=== PATIENT | female | born 1990 | race Caucasian/White ===

== ENCOUNTER 2017-03-26 02:20 | Emergency (ER) | payer MEDICAID, OTHER ==
--- NOTE | 2017-03-26 03:54 | ER Document Report ---
ED General - General Mode of Arrival: Ambulatory Information source: Patient <AUSTINAPOLINARCANELOANTHONY - Last Filed: 03/26/17 05:37> <MADDIEKAMERONVALERIA - Last Filed: 03/26/17 06:30> - General Chief Complaint: Chest Pain Stated Complaint: ABDOMINAL PAIN Time Seen by Provider: 03/26/17 03:40 Notes: Patient is a 26 year old female presenting to the emergency department for episodes of severe abdominal cramping just prior to having a bowel movement. These episodes have been occurring about 1 time every 1-2 months. Patient states she has severe abdominal pain associated with nausea, lightheadedness, and sometimes epigastric/chest pain. Patient states she does not vomit during the episodes but sometimes has diarrhea including today. Patient does not usually have a menstrual period because she has an IUD but patient states she is having some vaginal bleeding that she noticed tonight. Patient states she believes these episodes mostly occur around the time when she is supposed to get her menses. Patient has no known drug allergies. (ANTHONY ASHBY) - Related Data Allergies/Adverse Reactions: No Known Drug Allergies Allergy (Unknown, Verified 03/26/17 02:48) Home Medications: Current Home Medications Levonorgestrel [Mirena] 1 each IY ASDIR PRN 03/26/17 [History] Past Medical History - General Information source: Patient - Social History Smoking Status: Never Smoker Cigarette use (# per day): No Chew tobacco use (# tins/day): No Smoking Education Provided: No Frequency of alcohol use: None Drug Abuse: None Family History: None Patient has suicidal ideation: No Patient has homicidal ideation: No Endocrine Medical History: Reports: Hx Diabetes Mellitus Type 2 - borderline Surgical Hx: Negative - Immunizations Hx Diphtheria, Pertussis, Tetanus Vaccination: Yes - 03/14/13 <ANTHONY ASHBY - Last Filed: 03/26/17 05:37> Review of Systems - Review of Systems Constitutional: See HPI, Chills, Diaphoresis EENT: No symptoms reported Cardiovascular: See HPI, Chest pain Respiratory: No symptoms reported Gastrointestinal: See HPI, Abdominal pain, Diarrhea, Nausea, Vomiting Genitourinary: No symptoms reported Female Genitourinary: See HPI, Last menstrual period, Vaginal bleeding, Other Musculoskeletal: No symptoms reported Skin: No symptoms reported Hematologic/Lymphatic: No symptoms reported Neurological/Psychological: No symptoms reported -: Yes All other systems reviewed and negative <ANTHONY ASHBY - Last Filed: 03/26/17 05:37> Physical Exam - Vital signs Interpretation: Normal <ANTHONY ASHBY - Last Filed: 03/26/17 05:37> <VALERIA YU - Last Filed: 03/26/17 06:30> - Vital signs Vitals: Pulse Ox 100 03/26/17 03:36 - Notes Notes: GENERAL: Alert, interacts well. No acute distress. HEAD: Normocephalic, atraumatic. EYES: Pupils equal, round, and reactive to light. Extraocular movements intact. ENT: Oral mucosa moist, tongue midline. NECK: Full range of motion. Supple. Trachea midline. LUNGS: Clear to auscultation bilaterally, no wheezes, rales, or rhonchi. No respiratory distress. HEART: Intermittent tachycardia, 104 bpm upon entering room, 93 bpm while discussing patient history, 107 bpm during exam. Regular rhythm. No murmurs, gallops, or rubs. ABDOMEN: Soft, non-tender. Non-distended. Bowel sounds present in all 4 quadrants. EXTREMITIES: Moves all 4 extremities spontaneously. No edema, radial and dorsalis pedis pulses 2/4 bilaterally. No cyanosis. NEUROLOGICAL: Alert and oriented x3. Normal speech. PSYCH: Normal affect, normal mood. SKIN: Warm, dry, normal turgor. No rashes or lesions noted. (ANTHONY ASHBY) Course - Laboratory Result Diagrams: 03/26/17 04:05 03/26/17 04:05 <ANTHONY ASHBY - Last Filed: 03/26/17 05:37> - Laboratory Result Diagrams: 03/26/17 04:05 03/26/17 04:05 <VALERIA YU - Last Filed: 03/26/17 06:30> - Re-evaluation Re-evalutation: 03/26/17 06:26 CBC shows leukocytosis at 18.4, d-dimer was ordered given the tachycardia where her heart rate spiked up to 150 bpm and stayed there for approximately 15 seconds and then normalized, d-dimer is elevated at 0.68, CMP unremarkable, cardiac enzymes negative, thyroid functions normal, hCG negative, CT of the chest was undertaken after positive d-dimer was found and it revealed no acute process. EKG shows mild tachycardia but no ischemia. At present I do not know why the patient's heart rate temporarily accelerated, nor do have an explanation for her 18.4 white count. Patient is afebrile, she is in no acute distress. I asked the patient to follow-up with a wax pot tender as an outpatient to have a Holter monitor placed. Patient will be referred to Dr. Valencia for outpatient follow-up. Patient will also return for any new or concerning symptoms. The leukocytosis may be coming from the diarrhea that she is currently having however abdomen is soft and benign. No indication for CAT scan at this time. (VALERIA YU) - Vital Signs Vital signs: Temp Pulse Resp BP Pulse Ox 18 136/99 H 100 03/26/17 04:01 03/26/17 04:00 03/26/17 04:01 - Laboratory Laboratory results interpreted by me: 03/26/17 03/26/17 03/26/17 04:05 04:05 04:05 WBC 18.4 H Seg Neutrophils % 79.5 H Absolute Neutrophils 14.6 H D-Dimer 0.68 H Glucose 123 H - EKG Interpretation by Me Additional EKG results interpreted by me: 03/26/17 06:28 EKG shows sinus tachycardia at a rate of 109, slight left axis deviation, normal intervals, no ST segment elevations or depressions, there is nonspecific T-wave inversions and T-wave flattening per my interpretation. (VALERIA YU) Discharge <ANTHONY ASHBY - Last Filed: 03/26/17 05:37> <VALERIA YU - Last Filed: 03/26/17 06:30> - Discharge Clinical Impression: Vasovagal near syncope, Pre-hypertension, Sinus tachycardia seen on engine monitor Diarrhea Qualifiers: Diarrhea type: unspecified type Qualified Code(s): R19.7 - Diarrhea, unspecified Condition: Stable Disposition: HOME, SELF-CARE Additional Instructions: Today your heart rate went up to 150 bpm. I am not sure why this happened. It did go away. It is important that you follow-up with a wax pot tender to have a Holter monitor placed. We would like to see what makes this happen and how often it happens. Diarrhea Diarrhea means frequent, watery stools. There are many causes. Any problem that keeps the intestinal tract from absorbing water from the stool can lead to diarrhea. A sudden new diarrhea problem is usually caused by a virus, food sensitivity, toxic bacteria, or drugs. In this case, we expect the problem to go away soon. Testing is done only if you seem seriously ill from the diarrhea. If you have chronic diarrhea, or diarrhea that keeps coming back, we need to find out why. Chronic diarrhea can be due to inflammation of the bowels such as Crohn's disease or ulcerative colitis, food sensitivity such as intolerance to lactose or wheat protein, irritable bowel syndrome, and other problems. If your diarrhea is a significant problem but it's not clear why you have it, we' ll refer you to a specialist for further testing. During an episode of diarrhea, drink small amounts (two to six ounces) of clear liquids (soft drinks, sport drinks, herb teas, broth, etc). Take fluids frequently to prevent dehydration. It's usually not a problem to take mild anti- diarrhea medication such as Kaopectate or Pepto-Bismol. As the diarrhea eases, advance to small amounts of bland food (mashed potato, toast) for 24 hours. Call the physician if blood appears in your vomit or stool, if vomiting lasts longer than 48 hours, if the abdominal pain worsens or becomes localized to one area, if you develop high fever, or if you become lightheaded and weak. Forms: Elevated Blood Pressure Referrals: TAVON VALENCIA MD [ACTIVE STAFF] - Follow up as needed Scribe Attestation: 03/26/17 06:30 I personally performed the services described in the documentation, reviewed and edited the documentation which was dictated to the scribe in my presence, and it accurately records my words and actions. (VALERIA YU) Scribe Documentation - Scribe Written by Jose:: Jose Burkett 03/26/2017 4:42 acting as scribe for :: Ashvin <ANTHONY ASHBY - Last Filed: 03/26/17 05:37>
[2017-03-26] MEDS ORDERED: NORMAL SALINE 1000 ML 1,000 ML IV ONE (03:58)
[2017-03-26 04:14] LABS: ABSOLUTE BASOPHILS # (AUTO) 0.1 10^3/uL (0.0-0.2); ABSOLUTE EOSINOPHILS # (AUTO) 0.1 10^3/uL (0.0-0.6); ABSOLUTE LYMPHOCYTES (AUTO) 2.5 10^3/uL (0.5-4.7); ABSOLUTE MONOCYTES (AUTO) 1.1 10^3/uL (0.1-1.4); ABSOLUTE NEUT (AUTO) 14.6 10^3/uL (1.7-8.2); BASOPHILS % (AUTO) 0.5 % (0-2); EOSINOPHILS % (AUTO) 0.4 % (0-6); HEMATOCRIT 41.5 % (36.0-47.0); HEMOGLOBIN 14.3 g/dL (12.0-15.5); HGB HCT DIFFERENCE 1.4; LYMPHOCYTES % (AUTO) 13.7 % (13-45); MEAN CORPUSCULAR HGB CONC 34.5 g/dL (32.0-36.0); MEAN CORPUSCULAR VOLUME 81 fl (80-97); MONOCYTES % (AUTO) 5.9 % (3-13); RED BLOOD COUNT 5.11 10^6/uL (3.72-5.28); RED CELL DISTRIBUTION WIDTH 13.3 % (11.5-14.0); SEGMENTED NEUTROPHILS % (AUTO) 79.5 % (42-78); WHITE BLOOD COUNT 18.4 10^3/uL (4.0-10.5)
[2017-03-26 04:24] LABS: ALANINE AMINOTRANSFERASE 31 U/L (9-52); ALBUMIN 4.5 g/dL (3.5-5.0); ALKALINE PHOSPHATASE 100 U/L (38-126); ANION GAP 13 (5-19); ASPARTATE AMINO TRANSFERASE 17 U/L (14-36); BILIRUBIN,DIRECT 0.4 mg/dL (0.0-0.4); BILIRUBIN,TOTAL 0.4 mg/dL (0.2-1.3); BLOOD UREA NITROGEN 11 mg/dL (7-20); CARBON DIOXIDE 24 mmol/L (22-30); CHLORIDE 104 mmol/L (98-107); CREATINE KINASE 34 U/L (30-135); GLUCOSE 123 mg/dL (75-110); POTASSIUM 4.4 mmol/L (3.6-5.0); SODIUM 140.5 mmol/L (137-145); TOTAL PROTEIN 7.4 g/dL (6.3-8.2)
[2017-03-26 04:43] LABS: CREATINE KINASE MB < 0.22 ng/mL (<4.55); TROPONIN I < 0.012 ng/mL
[2017-03-26 04:51] LABS: FREE T3 4.69 pg/mL (2.77-5.27)
[2017-03-26 05:04] LABS: THYROID STIMULATING HORMONE 2.84 uIU/mL (0.47-4.68)
--- NOTE | 2017-03-26 05:56 | RADIOLOGY REPORT (SQ) ---
EXAM DESCRIPTION: CTA CHEST COMPLETED DATE/TIME: 03/26/2017 5:20 am REASON FOR STUDY: near syncope, elevated d-dimer COMPARISON: None. TECHNIQUE: CT scan of the chest performed using helical scanning technique with dynamic intravenous contrast injection. Images reviewed with lung, soft tissue and bone windows. Reconstructed coronal and sagittal MPR images reviewed. Additional 3 dimensional post-processing performed to develop Maximal Intensity Projection images (VA P). All images stored on PACS. All CT scanners at this facility use dose modulation, iterative reconstruction, and/or weight based d osing when appropriate to reduce radiation dose to as low as reasonably achievable (ALARA). [facility]: Dose Right [facility]: CareDose [facility]: Dose Right [facility]: Teradose 4D [facility]: H&D Wireless CONTRAST TYPE AND DOSE: contrast/concentration: Isovue 370.00 mg/ml; Total Contrast Delivered: 73.0 ml; Total Saline Delivered: 110.0 ml Contrast bolus optimized for the pulmonary arteries. Not diagnostic for the aorta. RENAL FUNCTION: None required. The patient is less than 50 years old. RADIATION DOSE: Up-to-date CT equipment and radiation dose reduction techniques were employed. CTDIv ol: 13.2 - 15.5 mGy. DLP: 567 mGy-cm. . LIMITATIONS: None. FINDINGS: LUNGS AND PLEURA: No masses, infiltrates, pneumothorax. No pleural effusions, calcificati ons. AORTA AND GREAT VESSELS: No aneurysm. Contrast bolus not optimized for the aorta. HEART: No pericardial effusion. No significant coronary artery calcifications. Mild nonspecific prom inence of right ventricular volume. PULMONARY ARTERIES: No emboli visualized in the main pulmonary arteries or the segmental branches. P ulmonary arterial enhancement is suboptimal measuring 210 Hounsfield units. HILAR AND MEDIASTINAL STRUCTURES: No identified masses or abnormal nodes. HARDWARE: None in the chest. UPPER ABDOMEN: No significant findings. Limited exam. THYROID AND OTHER SOFT TISSUES: No masses. No adenopathy. BONES: No acute or significant finding. 3D MIPS: Confirm above findings. OTHER: No other significant finding. IMPRESSION: No acute cardiopulmonary findings. No significant pulmonary embolus. COMMENT: Quality ID # [id number]: Final reports with documentation of one or more dose reduction techniques (e.g., Automated exposure control, adjustment of the mA and/or kV according to patient size, use of iterative reconstruction technique) TECHNICAL DOCUMENTATION: JOB ID: [id number] [employer]- All Rights Reserved
--- NOTE | 2017-03-26 06:25 | EKG REPORT ---
SEVERITY:- BORDERLINE ECG - SINUS TACHYCARDIA BORDERLINE T ABNORMALITIES, DIFFUSE LEADS : Confirmed by: Yogi Gardner MD 26-Mar-2017 06:25:32
[2017-03-26 06:48] VITALS: BP 111/81
== END 2017-03-26 06:52 | disposition home or self-care (01) ==
LOC: ER 02:20
DX: R42 Dizziness and giddiness (principal); R03.0 Elevated blood-pressure reading, without diagnosis of hypertension; R00.0 Tachycardia, unspecified; R19.7 Diarrhea, unspecified; R07.9 Chest pain, unspecified; R10.9 Unspecified abdominal pain; R11.0 Nausea; N93.9 Abnormal uterine and vaginal bleeding, unspecified
CPT/HCPCS: 93005; 99285; 96360; 36415; 84439; 82553; 82550; 84443; 84703; 85025; 80053; 84484; 84481; 85379; 71275; 93010; J7030

== ENCOUNTER → 2017-12-22 | Outpatient (CLI) | payer MEDICAID ==
--- NOTE | 2017-12-22 14:23 | RADIOLOGY REPORT (SQ) ---
EXAM DESCRIPTION: NM GASTRIC EMPTYING STUDY COMPLETED DATE/TIME: 12/22/2017 2:00 pm REASON FOR STUDY: EPIGASTRIC PAIN R10.13 EPIGASTRIC PAIN COMPARISON: None. RADIONUCLIDE AND DOSE: 2.0 millicuries Tc-99m Sulfur Colloid. A wide variety of solid foods have been used. The route of agent administration: Oral. TECHNIQUE: 1 minute serial static imaging performed at time of meal, 1 hour, 2 hours, 3 hours, and 4 hours as needed. Once stomach reaches 90% emptying, the test is complete. Image intensity values pl otted with respect to time with linear regression algorithm. LIMITATIONS: None. FINDINGS: Patient was observed for 4 hours. Immediate post meal serves as baseline. Gastric emptying at 30 minutes was 11%. Gastric emptying at 60 minutes was 23% Gastric emptying at 90 minutes was 35%. Gastric emptying at 120 minutes was 47%. Gastric emptying at 240 minutes was 93%. Normal values: 60 minutes: 30-90% retained. If less than 30%, abnormally rapid emptying. If greater than 90%, del ayed gastric emptying. 120 minutes: <60% retained. If greater than 60%, delayed gastric emptying. 240 minutes: <10% retained. If greater than 10%, delayed gastric emptying. IMPRESSION: NORMAL GASTRIC EMPTYING. TECHNICAL DOCUMENTATION: JOB ID: [id number] [employer]- All Rights Reserved Reading location - IP/workstation name: [email or web address]
== END ==
LOC: RAD 07:54
PROVIDERS: ATTEND Internal Medicine Gastroenterology
DX: R10.13 Epigastric pain (principal)
CPT/HCPCS: 78264; A9541

== ENCOUNTER 2020-07-23 16:27 | Emergency (ER) | payer MEDICAID ==
--- NOTE | 2020-07-23 18:09 | ER Document Report ---
ED Medical Screen (RME) - General Chief Complaint: Chest Tightness Stated Complaint: TIGHTNESS IN CHEST Time Seen by Provider: 07/23/20 18:04 Primary Care Provider: MAGEN MELTON MD [Primary Care Provider] - Follow up as needed Notes: Patient 29-year-old female who presents emergency department with a chief complaint of chest tightness. Patient reports around 4 AM this morning she woke up with chest tightness. Patient reports is been pretty continuous throughout the day. Patient reports that laying down and calming her breathing seems to help with the discomfort. Patient does have a history of tachycardia and anxiety. Patient is on Lexapro daily for her anxiety. TRAVEL OUTSIDE OF THE [place] IN LAST 30 DAYS: No - Related Data Allergies/Adverse Reactions: No Known Drug Allergies Allergy (Unknown, Verified 07/23/20 17:53) Home Medications: protonix. metoprolol. lexapro. zyrtec. flonase. metformin. hctz Past Medical History - Social History Chew tobacco use (# tins/day): No Frequency of alcohol use: None Drug Abuse: None Endocrine Medical History: Reports: Hx Diabetes Mellitus Type 2 - borderline, on no meds. Renal/ Medical History: Denies: Hx Peritoneal Dialysis GI Medical History: Reports: Hx Gastroesophageal Reflux Disease Psychiatric Medical History: Reports: Hx Depression - Immunizations Hx Diphtheria, Pertussis, Tetanus Vaccination: Yes - 03/14/13 Physical Exam - Vital signs Vitals: Temp Pulse Resp BP Pulse Ox 99.3 F 100 16 148/105 H 99 07/23/20 17:03 07/23/20 17:03 07/23/20 17:03 07/23/20 17:03 07/23/20 17:03 Interpretation: Tachycardic - Cardiovascular Rhythm: Tachycardia Heart sounds: Normal auscultation, S1 appreciated, S2 appreciated Course - Re-evaluation Re-evalutation: 07/23/20 18:08 Will obtain basic labs, EKG, chest x-ray as well as a TSH due to the tachycar guillermina. I have greeted and performed a rapid initial assessment of this patient. A comprehensive ED assessment and evaluation of the patient, analysis of test results and completion of the medical decision making process will be conducted by additional ED providers. - Vital Signs Vital signs: Temp Pulse Resp BP Pulse Ox 99.3 F 100 16 148/105 H 99 07/23/20 17:03 07/23/20 17:03 07/23/20 17:03 07/23/20 17:03 07/23/20 17:03 Doctor's Discharge - Discharge Referrals: MAGEN MELTON MD [Primary Care Provider] - Follow up as needed
--- NOTE | 2020-07-23 18:28 | RADIOLOGY REPORT (SQ) ---
EXAM DESCRIPTION: CHEST 2 VIEWS IMAGES COMPLETED DATE/TIME: 07/23/2020 6:18 pm REASON FOR STUDY: chest tightness COMPARISON: None. EXAM PARAMETERS: NUMBER OF VIEWS: two views TECHNIQUE: Digital Frontal and Lateral radiographic views of the chest acquired. RADIATION DOSE: NA LIMITATIONS: none FINDINGS: LUNGS AND PLEURA: No opacities, masses or pneumothorax. No pleural effusion. MEDIASTINUM AND HILAR STRUCTURES: No masses or contour abnormalities. HEART AND VASCULAR STRUCTURES: Heart normal size. No evidence for failure. BONES: No acute findings. HARDWARE: None in the chest. OTHER: No other significant finding. IMPRESSION: NO ACUTE RADIOGRAPHIC FINDING IN THE CHEST. TECHNICAL DOCUMENTATION: JOB ID: [id number] [employer]- All Rights Reserved Reading location - IP/workstation name: [email or web address]
[2020-07-23 18:50] LABS: ABSOLUTE BASOPHILS # (AUTO) 0.1 10^3/uL (0.0-0.2); ABSOLUTE EOSINOPHILS # (AUTO) 0.2 10^3/uL (0.0-0.6); ABSOLUTE LYMPHOCYTES (AUTO) 3.5 10^3/uL (0.5-4.7); ABSOLUTE MONOCYTES (AUTO) 0.7 10^3/uL (0.1-1.4); ABSOLUTE NEUT (AUTO) 14.4 10^3/uL (1.7-8.2); BASOPHILS % (AUTO) 0.4 % (0-2); EOSINOPHILS % (AUTO) 0.8 % (0-6); HEMATOCRIT 40.6 % (36.0-47.0); HEMOGLOBIN 13.5 g/dL (12.0-15.5); LYMPHOCYTES % (AUTO) 18.6 % (13-45); MEAN CORPUSCULAR HEMOGLOBIN 26.1 pg (27.0-33.4); MEAN CORPUSCULAR HGB CONC 33.2 g/dL (32.0-36.0); MEAN CORPUSCULAR VOLUME 79 fl (80-97); PLATELET COUNT 379 10^3/uL (150-450); RED BLOOD COUNT 5.16 10^6/uL (3.72-5.28); RED CELL DISTRIBUTION WIDTH 14.7 % (11.5-14.0); SEGMENTED NEUTROPHILS % (AUTO) 76.2 % (42-78); TOTAL CELLS COUNTED % (AUTO) 100 %; WHITE BLOOD COUNT 18.9 10^3/uL (4.0-10.5)
[2020-07-23 18:54] LABS: APPEARANCE,URINE CLEAR; BILIRUBIN,URINE NEGATIVE (NEGATIVE); COLOR,URINE YELLOW; GLUCOSE, URINE NEGATIVE (NEGATIVE); KETONES,URINE 80 mg/dL (NEGATIVE); LEUKOCYTE ESTERASE,URINE NEGATIVE (NEGATIVE); NITRITE,URINE POSITIVE (NEGATIVE); PROTEIN,URINE 30 mg/dL (NEGATIVE); URINE SPECIFIC GRAVITY 1.026; UROBILINOGEN,URINE NEGATIVE mg/dL (<2.0)
[2020-07-23 19:09] LABS: ALBUMIN 4.4 g/dL (3.5-5.0); ALKALINE PHOSPHATASE 100 U/L (38-126); ANION GAP 8 (5-19); ASPARTATE AMINO TRANSFERASE 29 U/L (14-36); BILIRUBIN,DIRECT 0.2 mg/dL (0.0-0.4); BILIRUBIN,TOTAL 0.5 mg/dL (0.2-1.3); BLOOD UREA NITROGEN 7 mg/dL (7-20); CALCIUM 9.5 mg/dL (8.4-10.2); CARBON DIOXIDE 27 mmol/L (22-30); CHLORIDE 99 mmol/L (98-107); GLUCOSE 108 mg/dL (75-110); TOTAL PROTEIN 7.4 g/dL (6.3-8.2)
[2020-07-23] MEDS ORDERED: NORMAL SALINE 1000 ML 1,000 ML IV ONE (20:07)
[2020-07-23] MEDS ORDERED: RINGERS SOLUTION,LACTATED 1,000 ML IV ONE (22:02)
[2020-07-23] MEDS ORDERED: LORAZEPAM INJ 2 MG/1 ML VIAL IV ONE (22:02)
--- NOTE | 2020-07-23 22:11 | ER Document Report ---
ED General - General Chief Complaint: Chest Tightness Stated Complaint: TIGHTNESS IN CHEST Time Seen by Provider: 07/23/20 18:04 Primary Care Provider: MAGEN MELTON MD [NO LOCAL MD] - Follow up as needed Notes: Patient is a 29 year old female that comes to the emergency department for chief complaint of chest tightness, rapid heart rate, anxiety. Patient states that she keeps having ways where her heart feels like it is racing and she feels a tightening in her chest. She states she feels like she is just getting anxious and panic attacks. She states that lying down and slowing down her breathing does seem to help make the tightness go away. Patient states he has a history of both tachycardia and anxiety, resting heart rate is always above 100 despite being on metoprolol in the past. She states she also has chronically elevated white blood cell counts and has been to hematology but has had a negative work- up to this point. Patient also on Lexapro for anxiety. She denies smoking, recreational drugs, , oral contraceptive, personal family history of heart attack, heart disease, or blood clot. She denies any sick symptoms including fever, vomiting, chest pain, abdominal pain. TRAVEL OUTSIDE OF THE [place] IN LAST 30 DAYS: No - Related Data Allergies/Adverse Reactions: No Known Drug Allergies Allergy (Unknown, Verified 07/23/20 17:53) Home Medications: protonix. metoprolol. lexapro. zyrtec. flonase. metformin. hctz Past Medical History - General Information source: Patient - Social History Smoking Status: Never Smoker Chew tobacco use (# tins/day): No Frequency of alcohol use: None Drug Abuse: None Lives with: Family Family History: None, Reviewed & Not Pertinent Patient has homicidal ideation: No Endocrine Medical History: Reports: Hx Diabetes Mellitus Type 2 - borderline, on no meds. Renal/ Medical History: Denies: Hx Peritoneal Dialysis GI Medical History: Reports: Hx Gastroesophageal Reflux Disease Psychiatric Medical History: Reports: Hx Anxiety, Hx Depression - Immunizations Hx Diphtheria, Pertussis, Tetanus Vaccination: Yes - 03/14/13 Review of Systems - Review of Systems Constitutional: See HPI EENT: No symptoms reported Cardiovascular: See HPI Respiratory: No symptoms reported Gastrointestinal: No symptoms reported Genitourinary: No symptoms reported Female Genitourinary: No symptoms reported Musculoskeletal: No symptoms reported Skin: No symptoms reported Hematologic/Lymphatic: No symptoms reported Neurological/Psychological: See HPI Physical Exam - Vital signs Vitals: Temp Pulse Resp BP Pulse Ox 99.3 F 100 16 148/105 H 99 07/23/20 17:03 07/23/20 17:03 07/23/20 17:03 07/23/20 17:03 07/23/20 17:03 - Notes Notes: GENERAL: Alert, interacts well. No acute distress. HEAD: Normocephalic, atraumatic. EYES: Dilated pupils but equal, round, reactive to light ENT: Oral mucosa dry, tongue midline. Oropharynx unremarkable. Airway patent. NECK: Full range of motion. Supple. Trachea midline. No lymphadenopathy. LUNGS: Clear to auscultation bilaterally, no wheezes, rales, or rhonchi. No respiratory distress. Non-tender chest wall. HEART: Tachycardia, normal rhythm, no murmur ABDOMEN: Soft, non-tender. Non-distended. EXTREMITIES: Moves all 4 extremities spontaneously. No edema, normal radial and dorsalis pedis pulses bilaterally. No cyanosis. BACK: no cervical, thoracic, lumbar midline tenderness. No saddle anesthesia, normal distal neurovascular exam. Moves all extremities in full range of motion. NEUROLOGICAL: Alert and oriented x3. Normal speech. Cranial nerves II through XII grossly intact. Strength 5/5 in all extremities. PSYCH: Patient talks very rapidly and anxiously, keeps stating that she is anxious SKIN: Warm, dry, normal turgor. No rashes or lesions noted. Course - Re-evaluation Re-evalutation: On my initial evaluation patient with dilated pupils, tachycardia, talks anxiously, states she is anxious, she was given Ativan. She was also given IV fluids. She has dry mucous membranes. She states she has not eaten anything all day. CBC shows leukocytosis of 18,000 but this is consistent with all of her previous labs, this appears to be her baseline and this has been evaluated by hematology. Chemistry unremarkable. Cardiac enzymes not elevated. TSH unremarkable. Urine shows elevated specific gravity, ketones consistent with dehydration. Patient given lactated Ringer's. There is also positive nitrites although after discussed with patient she has absolutely no urinary symptoms and declines treatment after it was offered. Culture was placed. On reevaluation after IV fluids and Ativan patient states he feels much improved. Heart rate is improved, blood pressure improved, however patient stat es her resting heart rate is always above 100. Patient has no complaints at this time. I do not suspect acute intrathoracic etiology based on her improvement, work-up, history, symptoms. Patient states he has been having bad reflux symptoms and thinks this is contributing to her symptoms as well, request treatment, given Carafate. I discussed expectations and return precautions. Patient states appreciation and agreement. Stable and well-appearing at time of discharge. - Vital Signs Vital signs: Temp Pulse Resp BP Pulse Ox 98.2 F 112 H 20 155/96 H 99 07/24/20 00:35 07/24/20 00:35 07/24/20 00:35 07/24/20 00:35 07/24/20 00:35 - Laboratory Results Result Diagrams: 07/23/20 18:28 07/23/20 18:28 Laboratory Results Interpreted: 07/23/20 07/23/20 07/23/20 18:28 18:28 18:28 WBC 18.9 H MCV 79 L MCH 26.1 L RDW 14.7 H Absolute Neuts (auto) 14.4 H Sodium 134.4 L Urine Protein 30 H Urine Ketones 80 H Urine Blood MODERATE H Urine Nitrite POSITIVE H Critical Laboratory Results Reviewed: No Critical Results - Radiology Results Critical Radiology Results Reviewed: No Critical Results - EKG Interpretation by Me Additional EKG results interpreted by me: EKG shows sinus tachycardia at a rate of 102, QTc 469, borderline T wave inversion in lead III but no T wave inversions or ST segment changes in consecutive leads. Discharge - Discharge Clinical Impression: Chest tightness, Dehydration, Anxiety Condition: Stable Disposition: HOME, SELF-CARE Additional Instructions: Your work-up shows dehydration and acidosis (ketones) as we discussed but your overall evaluation does not show any concerning findings. You have been treated for this. Improve your eating and hydration. You can take the Carafate if needed for GERD/reflux along with your current medications. Follow-up with primary care. Return if you worsen including developing difficulty breathing, fever, passing out, severe worsening pain, vomiting, or any other concerning or worsening symptoms. Prescriptions: Sucralfate [Carafate 1 gm Tablet] 1 gm PO QID PRN #20 tablet PRN Reason: Referrals: MAGEN MELTON MD [NO LOCAL MD] - Follow up as needed
--- OUTSIDE RECORDS SUMMARY | 2020-07-23 22:50 | XMS REPORT ---
:1990 [facility] Address [address] [address] Care Team Providers Name Role Phone SAL MILLAN PA-C Attending Clinician Unavailable Divine COLLIER Attending Clinician Unavailable ABI Attending Clinician Unavailable Allergies, Adverse Reactions, Alerts This patient has no known allergies or adverse reactions. Medications Ordered Filled Start Stop Current Ordering Indication Dosage Frequency Signature Comments Components Medication Medication Date Date Medication? Clinician (SIG) Name Name Ciprofloxac 2019- No Sal Song 4 Twice Per in/Dexameth 12-24 Anna Yana Day 0.3-.01% 00:00: 00:00 Otic Susp* 00 :00 (Ciprodex 0.3-0.1% Otic Susp*) 7.5 Ml Drops.susp Promethazin Latoya Haskins 25 Every 4 T o e Hcl 04-02 Nando Durán 6 Hours as (Phenergan 00:00: 00:00 needed for Tab*) 25 Mg 00 :00 Nausea/Vom Tablet, 25 iting Mg Oral Problems Condition Condition Condition Status Onset Resolution Last Treatin g Comments Name Details Category Date Date Treatment Clinician Date Acute Problem Resolved otitis 12-24 externa 11:37: 00 Pain of Problem Active upper 04-02 abdomen 03:21: 00 Chest pain Chest pain Problem Inactive 03-31 12:29: 00 Diarrhea Diarrhea Problem Inactive 03-31 12:29: 00 Chest pain Problem Resolved 03-31 12:29: 00 Diarrhea Problem Resolved 03-31 12:29: 00 Procedures This patient has no known procedures. Results Test Description Test Time Test Comments Text Results Atomic Results Result Comments CAT 2017-04-[address] [id number] SCAN 02:47:00 ------ Goran t: NAIF ADAIR : 1990 Sex: F Address: [address] [place] [address] [place] [id number] Unit #: [id number] REQ SEQ #: [id number] Location: ED Room #: Ordering: LATOYA COLLIER MD Diagnosis: ABDOMINAL PAIN/HEADACHE ------ ABDO MEN AND PELVIS CT WITH CONTRAST: History: Abdominal pain Comparison: Is a prior right upper quadrant ultrasound dated 04/02/17. Technique: Trans axial volumetric data was obtained through the abdomen and pelvis after administration of 118 ml of Optiray 320 intravenous contrast. Multiplanar renate nstruction was generated. Findings: Heart and lung bases: Heart size is normal. There is a calcified granuloma in the right middle lobe. Liver: Normal size. No masses or biliary dilatation. Spleen: Normal size. There is a 7 mm hypodense lesion. This is too small to characterize. Pancreas: Normal size. No ductal dilatation. Gallbladder: Normal wall thickness. No calculi. Kidneys: Normal size, shape, and position. No hyd ronephrosis. No nephrolithiasis. Adrenal glands: Normal No abdominal lymphadenopathy or anterior abdominal wall hernia. No ascites or abdominal aor tic aneurysm. No inflammatory changes are seen in the abdomen. No free air. No bowel dilatation. The bladder is unremarkable. The appendix is norm al in size. No free fluid in the pelvis. No inflammatory changes or lymphadenopathy are noted in the pelvis. No inguinal hernia. There are no focal suspici ous lytic or sclerotic osseous lesions. The uterus is normal in size. There is an IUD noted within the uterus. The ovaries are grossly within normal limits. Impression: 1. No bowel dilatation 2. No inflammation in the abdomen or pelvis. Final report electronically signed by: Chris Be MD Signed by: CHRIS BE MD 04/02/17 0243 cc: CHRIS BE MD, LINDSEY J MD ULTRA 2017-04-[address] [address] [facility] 01:14:00 ------ Goran t: MANANAIF : 1990 Sex: F Address: [address] [address] [facility] #: [id number] Unit #: [id number] [facility] SEQ #: [id number] Location: ED Room #: Ordering: LATOYA COLLIER MD Diagnosis: ABDOMINAL PAIN/HEADACHE ------ Latisha cation: Abdominal pain. Findings: Utilizing real-time grayscale imaging and color Doppler analysis, the right upper quadrant was evaluated sono graphically. The abdominal aorta is normal in caliber. The IVC, portal vein and hepatic veins are patent with normal directional flow. No as cites in the right upper quadrant. No right pleural effusion identified. The pancreas is obscured by overlying bowel gas. The right kidney measures 11.6 cm in length. The common bile duct is normal in caliber without stone measuring 3.5 mm in diameter. The gallbladder is normal without gallston es or sludge or wall thickening or pericholecystic fluid.. No tenderness elicited while scanning over the gallbladder (negative sonographic Silva sign). Impression: No evidence of cholelithiasis, cholecystitis or biliary ductal distention. Poor visualization of the pancreas. No right renal mass or obstruct tiffanie uropathy. The liver is mildly echogenic possibly due to fatty infiltration or early changes of cirrhosis. 24 x 30 mm hypoechoic lesion within the left lobe of the liver consistent with a small solid liver mass. This is incompletely characterized and neoplasm is not excluded. This does not have the appeara nce of a benign cyst. Followup imaging is recommended. A liver MRI with dynamic gadolinium enhancement is recommended for further characterization of the incidental liver lesion.. Final report electronically signed by: Erika Colbert MD Signed by: ERIKA COLBERT MD [id number] cc: LATOYA COLLIER MD, DOUGLAS J MD Sodium Level 2017-03-31 11:15:00 Test Item Value Reference Range Comments Serum sodium measurement (test code = 2951-2) 142 13 7-145 Potassium Afqca8546-22-42 11:15:00 Test Item Value Reference Range Comments Serum potassium measurement (test code = 2823-3) 4.3 3.5-5.1 Chloride Uoxua2451-75-76 11:15:00 Test Item Value Reference Range Comments Chloride ser/plas (test code = 2075-0) 105 98-107 Carbon Dioxide Vxddu9853-23-89 11:15:00 Test Item Value Reference Range Comments Carbon dioxide measurement (test code = 17766922) 22 22-30 Glucose Sxcvu7924-92-64 11:15:00 Test Item Value Reference Range Comments Serum or plasma glucose measurement (mass/volume) 89 74-106 (test code = 2345-7) Blood Urea Efaxlmxs5513-44-45 11:15:00 Test Item Value Reference Range Comments Serum or plasma urea nitrogen measurement 8 7-17 (mass/volume) (test code = 3094-0) Ygmeabpboo8305-21-78 11:15:00 Test Item Value Reference Range Comments Serum or plasma creatinine measurement (moles/volume) 0.69 0.52-1.04 (test code = 39321-1) Anion Hxe4859-22-85 11:15:00 Test Item Value Reference Range Comments Blood anion gap (test code = 39734-8) 19 7-16 Calcium Ccpgr5426-24-20 11:15:00 Test Item Value Reference Range Comments Serum or plasma calcium measurement (mass/volume) 9.5 8.4-10.2 (test code = 02231-9) Total Beqfpeeov5595-09-25 11:15:00 Test Item Value Reference Range Comments Total bilirubin measurement (moles/volume) (test code 0.4 0.2-1.3 = 69221-4) Total Dquapkm5897-54-66 11:15:00 Test Item Value Reference Range Comments Total protein blood (test code = 2885-2) 7.2 6.3-8.2 Blboper9532-83-63 11:15:00 Test Item Value Reference Range Comments Serum or plasma albumin measurement (mass/volume) 4.4 3.5-5.0 (test code = 1751-7) Wrcmlclv3046-39-00 11:15:00 Test Item Value Reference Range Comments Serum globulin measurement (test code = 029864337) 2.8 1.2-3.2 Albumin/Globulin Ngzug4833-96-98 11:15:00 Test Item Value Reference Range Comments Serum or plasma albumin/globulin mass ratio (test code 1.6 1.1-2.5 = 1759-0) Aspartate Amino Transf (AST/SGOT)2017-03-31 11:15:00 Test Item Value Reference Range Comments Aspartate aminotransferase (AST) to alanine 12 14-3 6 aminotransferase (ALT) ratio (test code = 1916-6) Alkaline Eaqltcyevrp4901-07-38 11:15:00 Test Item Value Reference Range Comments Alkaline phosphatase isoenzymes measurement (test code 88 38-126 = 92813-2) Alanine Aminotransferase (ALT/SGPT)2017-03-31 11:15:00 Test Item Value Reference Range Comments Serum or plasma alanine aminotransferase measurement 35 9.0-52.0 (enzymatic activity/volume) (test code = 1742-6) Free Xvoikuztl0198-14-77 11:15:00 Test Item Value Reference Range Comments Serum or plasma free thyroxine (T4) measurement 1.23 0.78-2.19 (mass/volume) (test code = 3024-7) White Blood Xpnde3016-08-57 10:30:00 Test Item Value Reference Range Comments Blood leukocytes automated count (number/volume) (test 13.9 3.6-11.1 code = 6690-2) Red Blood Ccnca6147-67-46 10:30:00 Test Item Value Reference Range Comments Blood erythrocytes automated count (number/volume) 5.70 3.69-4.88 (test code = 789-8) Kowlnfzrvy6122-13-03 10:30:00 Test Item Value Reference Range Comments Blood hemoglobin measurement (mass/volume) (test code 15.5 11.4-14.4 = 718-7) Bdkdpwspwr6401-50-39 10:30:00 Test Item Value Reference Range Comments Automated blood hematocrit (volume fraction) (test 47.0 33.3-41.4 code = 4544-3) Mean Corpuscular Ctuitk9344-83-09 10:30:00 Test Item Value Reference Range Comments Automated erythrocyte mean corpuscular volume (test 82.4 79.3-94.8 code = 787-2) Mean Corpuscular Zlhvgmalhw6986-67-65 10:30:00 Test Item Value Reference Range Comments Automated erythrocyte mean corpuscular hemoglobin 27.2 26.8-33.2 (mass per erythrocyte) (test code = 785-6) Mean Corpuscular Hemoglobin Ntdmhtf2263-82-44 10:30:00 Test Item Value Reference Range Comments Automated erythrocyte mean corpuscular hemoglobin 33.1 33.5-35.5 concentration measurement (mass/volume) (test code = 786-4) Red Cell Distribution Jghwv2481-92-47 10:30:00 Test Item Value Reference Range Comments Automated erythrocyte distribution width ratio (test 13.6 12.0-15.1 code = 788-0) Platelet Lqxlx3038-98-15 10:30:00 Test Item Value Reference Range Comments Automated blood platelet count (count/volume) (test 346 165-353 code = 777-3) Mean Platelet Zdpuuc3598-02-04 10:30:00 Test Item Value Reference Range Comments Automated blood platelet mean volume measurement (test 8.3 7.5-10.6 code = 65929-6) Neutrophils (%) (Auto)2017-03-31 10:30:00 Test Item Value Reference Range Comments Automated blood neutrophil count as percentage of 81.0 43.2-71.5 total leukocytes (test code = 770-8) Lymphocytes (%) (Auto)2017-03-31 10:30:00 Test Item Value Reference Range Comments Automated blood lymphocyte count as percentage of 13.7 16.8-43.4 total leukocytes (test code = 736-9) Monocytes (%) (Auto)2017-03-31 10:30:00 Test Item Value Reference Range Comments Automated blood monocyte count as percentage of total 4.3 4.6-12.4 leukocytes (test code = 5905-5) Eosinophils (%) (Auto)2017-03-31 10:30:00 Test Item Value Reference Range Comments Automated blood eosinophil count as percentage of 0.2 0.7-7.8 total leukocytes (test code = 713-8) Basophils (%) (Auto)2017-03-31 10:30:00 Test Item Value Reference Range Comments Automated blood basophil count as percentage of total 0.8 0.2-1.2 leukocytes (test code = 706-2) Neutrophils # (Auto)2017-03-31 10:30:00 Test Item Value Reference Range Comments Blood neutrophils automated count (number/volume) 11.3 1.9-7.2 (test code = 751-8) Lymphocytes # (Auto)2017-03-31 10:30:00 Test Item Value Reference Range Comments Automated blood lymphocyte count (number/volume) (test 1.9 1.1-2.7 code = 731-0) Monocytes # (Auto)2017-03-31 10:30:00 Test Item Value Reference Range Comments Blood monocytes automated count (number/volume) (test 0.6 0.3-0.8 code = 742-7) Eosinophils # (Auto)2017-03-31 10:30:00 Test Item Value Reference Range Comments Automated blood eosinophil count (test code = 711-2) 0.0 0.0-0.5 Basophils # (Auto)2017-03-31 10:30:00 Test Item Value Reference Range Comments Automated blood basophil count (count/volume) (test 0.1 0.0-0.1 code = 704-7) Urine Uucdb5354-66-57 10:25:00 Test Item Value Reference Range Comments Urine color determination (test code = 5778-6) YELLOW Urine Hkqpofcpaf4558-45-57 10:25:00 Test Item Value Reference Range Comments Urine clarity determination (test code = 72017-1) HAZY Urine Specific Mrccesp9522-86-87 10:25:00 Test Item Value Reference Range Comments Specific gravity of Urine by Refractometry automated 1.018 1.005-1.030 (test code = 23915-6) Urine vB7184-98-94 10:25:00 Test Item Value Reference Range Comments Urine pH (test code = 2756-5) 6.0 4.7-8.0 Urine [id number] 10:25:00 Test Item Value Reference Range Comments Urine leukocyte esterase detection by automated test 0-3 0-3 strip (test code = 77167-8) Urine Ibedhjw9182-58-30 10:25:00 Test Item Value Reference Range Comments Urine nitrite detection (test code = 06721-0) NEGATIVE NE GATIVE Urine Uqraosa4135-62-77 10:25:00 Test Item Value Reference Range Comments Urine protein detection (test code = 2887-8) TRACE NEG -TRACE Urine Glucose (UA)2017-03-31 10:25:00 Test Item Value Reference Range Comments Urine glucose detection (test code = 2349-9) NEGATIVE NEG ATIVE Urine Rxfwavd4690-64-17 10:25:00 Test Item Value Reference Range Comments Urine ketones detection (test code = 67288-2) 1+ NE GATIVE Urine Spkhimbvtttm7500-24-07 10:25:00 Test Item Value Reference Range Comments Urine urobilinogen measurement (test code = 34498-8) NORMAL NORMAL Urine Iuhxklecb6298-45-59 10:25:00 Test Item Value Reference Range Comments Urine bilirubin detection (test code = 1977-8) NEGATIVE N EGATIVE Urine Dvugq8793-76-92 10:25:00 Test Item Value Reference Range Comments Urine blood detection (test code = 59541-0) TRACE NEGA TIVE Urine Squamous Epithelial Cfiqn6598-82-30 10:25:00 Test Item Value Reference Range Comments Urine squamous epithelial cells detection by automated 1-5 0-3 method (test code = 17831-5) Urine IBP6250-91-23 10:25:00 Test Item Value Reference Range Comments Automated urine sediment erythrocyte count by 4-20 0- 3 microscopy (number/high power field) (test code = 77994-0) Urine Ubrwv4909-95-07 10:25:00 Test Item Value Reference Range Comments Mucus detection in urine sediment by light MODERATE microscopy (test code = 8247-9) CHLAMYDIA/GC AMPLIFICATION Test Item Value Reference Range Comments CHLAMYDIA TRACHOMATIS, ALEX (test code = 74244-3) N NEGATIVE NEGATIVE NEISSERIA GONORRHOEAE, ALEX (test code = 98496-5) N NEGATIVE NEGATIVE Encounters Start End Encounter Admission Attending Care Care Encounter Date/Time Date/Time Type Type Clinicians Facility Department ID 2018-12-24 2018[id number] 11:13:00 11:51:00 SAL 94 2017-04-01 2017-04-02 [id number] 23:03:00 03:37:00 LATOYA 2017-03-31 2017-03-31 Emergency ED [facility] [id number] 09:22:00 13:43:00 EBONI 56 Immunizations Ordered Immunization Filled Immunization Date Status Commen ts Refusal Reason Name Name Vaccination Unknown Completed Payers Payer Name Policy Type Policy Number Effective Date Expiration D ate Social History This patient has no known social history. Vital Signs Vital Name Observation Time Observation Value Comments WEIGHT 2018-12-24 11:13:00 116.0000 kg HEIGHT 2018-12-24 11:13:00 160.779720 cm WEIGHT 2017-04-01 23:03:00 93.100 kg HEIGHT 2017-04-01 23:03:00 160.263909 cm WEIGHT 2017-03-31 09:22:00 95.000 kg HEIGHT 2017-03-31 09:22:00 160.588889 cm
[2020-07-24 00:35] VITALS: BP 155/96
== END 2020-07-24 00:35 | disposition home or self-care (01) ==
LOC: ER 16:27
DX: R07.9 Chest pain, unspecified (principal); E86.0 Dehydration; F41.9 Anxiety disorder, unspecified; R73.03 Prediabetes; R00.0 Tachycardia, unspecified
CPT/HCPCS: 99285; 96361; 96374; 36415; 84443; 85025; 81025; 80053; 81001; 84484; 71046; J2060; J7030; J7120